=== PATIENT | male | born 1975 | race Caucasian/White ===

== ENCOUNTER 2021-08-03 02:30 | Emergency (ER) | payer OTHER ==
[2021-08-03 03:09] LABS: BASOPHIL 0.4 % (0-2); EOSINOPHIL 0.2 % (0-5); HCT 38.2 % (42.0-52.0); HGB 13.2 g/dl (13.2-18.0); LYMPHOCYTE 22.5 % (15-48); MCH 30.3 pg (25.0-31.0); MCHC 34.6 g/dL (32.0-36.0); MCV 87.8 fL (78.0-100.0); MONOCYTE 8.9 % (0-12); MPV 9.2 fL (6.0-9.5); NEUTROPHIL 67.8 % (41-80); NRBC 0; RBC 4.35 M/uL (4.70-6.00); RDW 14.3 % (11.5-14.0); WBC 4.8 K/uL (4.0-10.5)
[2021-08-03 03:22] LABS: LACTIC ACID 1.7 mmol/L (0.4-1.9)
[2021-08-03 03:29] LABS: ALBUMIN 4.1 g/dL (3.4-5.0); BILIRUBIN - TOTAL 0.9 mg/dL (0.2-1.0); BUN/CREAT RATIO (CALC) 10.5 RATIO; C-REACTIVE PROTEIN 10.1 mg/dL (<=0.90); CREATININE 1.14 mg/dL (0.67-1.17); FT4 (FREE T4) 0.9 ng/dL (0.76-1.46); GLOBULIN (CALCULATION) 3.4 g/dL; POTASSIUM 3.5 mmol/L (3.5-5.1); TOTAL PROTEIN 7.5 g/dL (6.4-8.2)
[2021-08-03 04:00] LABS: PLT 90 K/uL (150-400)
[2021-08-03 04:27] LABS: CORONAVIRUS 2019 SARS-COV-2 NEGATIVE (NEGATIVE); INFLUENZA A NAA NEGATIVE (NEGATIVE)
== END 2021-08-03 06:51 | disposition left against medical advice (07) ==
LOC: FER 02:30
PROVIDERS: Emergency Medicine Emergency Medical Services
DX: A41.9 Sepsis, unspecified organism (principal); R00.0 Tachycardia, unspecified; M25.512 Pain in left shoulder; F17.210 Nicotine dependence, cigarettes, uncomplicated; Z88.5 Allergy status to narcotic agent; Z91.041 Radiographic dye allergy status; Z53.8 Procedure and treatment not carried out for other reasons; Z88.6 Allergy status to analgesic agent; Z20.822 Contact with and (suspected) exposure to COVID-19
CPT/HCPCS: 36415; 71045; 71250; 80053; 82550; 83605; 84145; 84439; 84443; 84484; 85025; 85379; 86140; 87040; 93005; G0480; J0515; J1885; J2543; J3360; J3370; J7030; J7050; U0002